=== PATIENT | female | born 1960 | race Caucasian/White ===

== ENCOUNTER → 2018-03-23 | Emergency (ER) | payer BC ==
[~2018-03-23] VITALS: Ht 160 cm; Wt 60.8 kg
[~2018-03-23] MED LIST: ASPIR 8181 MG; NORVASC5 MG; ZYRTEC10 M3
== END | disposition home or self-care (01) ==
LOC: ER 09:21
DX: K52.89 Other specified noninfective gastroenteritis and colitis (principal); R10.32 Left lower quadrant pain

== ENCOUNTER 2020-11-28 19:38 | Inpatient (IN) | payer BC ==
[~2020-11-28] VITALS: Ht 160 cm; Wt 61.7 kg
== END 2020-12-02 11:26 | disposition home or self-care (01) | DRG 690 ==
LOC: ER 19:38 → EDBD 20:24 → ER 20:24 → MEDJ 11-29 13:53
PROVIDERS: ADMIT Internal Medicine; ATTEND Internal Medicine
PROC: BW21ZZZ Computerized Tomography (CT Scan) of Abdomen and Pelvis (ICD-10-PCS; principal; 2020-11-29)
PROC: BW30YZZ Magnetic Resonance Imaging (MRI) of Abdomen using Other Contrast (ICD-10-PCS; 2020-11-30)
DX: N39.0 Urinary tract infection, site not specified (principal); K86.89 Other specified diseases of pancreas; I10 Essential (primary) hypertension; Z20.822 Contact with and (suspected) exposure to COVID-19
CPT/HCPCS: 74182

== ENCOUNTER 2023-08-31 11:19 | Emergency (ER) | payer BC ==
[~2023-08-31] VITALS: Ht 160 cm; Wt 61.2 kg
[2023-08-31 14:18] LABS: PH,URINE 5.5 (5.0-8.0); URINE APPEARANCE Clear; URINE BILIRRUBIN Negative (NEGATIVE); URINE BLOOD Negative; URINE COLOR Dark Yellow; URINE GLUCOSE Negative (NEGATIVE); URINE LEUKOCYTE Negative; URINE NITRATE Negative; URINE PROTEIN Negative (NEGATIVE)
[2023-08-31 14:19] LABS: HEMATOCRIT 37.3 % (36.0-45.00); HEMOGLOBIN 12.6 g/dL (12.0-15.00); MEAN CELL VOLUME 84.5 fL (80.00-100.00); MEAN CORPUSCULAR HEMOGLOBIN 28.5 pg (27.00-32.0); MEAN CORPUSCULAR HGB CONC 33.8 g/dl (32.0-36.0); PLATELET COUNT 263 K/uL (150-450); RED BLOOD COUNT 4.42 M/uL (4.00-6.00); RED CELL DISTRIBUTION WIDTH 13.7 % (11.5-14.5)
[2023-08-31 14:21] LABS: ERYTHROCYTE SEDIMENTATION RATE 17 mm/hr
[2023-08-31 14:22] LABS: URINE BACTERIA 7.5 uL (0.0-1933); URINE EPITHELIAL CELLS 6.1 uL (0.0-38.8); URINE RBC 6.1 uL (0.0-20.8); URINE WBC 5.2 uL (0.0-23.2)
[2023-08-31 14:39] LABS: CALCIUM 9.6 mg/dL (8.5-10.1); CREATININE SERUM 0.64 mg/dL (0.55-1.02); GFR 92.84; POTASSIUM 3.84 mEq/L (3.5-5.1)
== END 2023-08-31 15:29 | disposition home or self-care (01) ==
LOC: ER 11:19
PROVIDERS: General Practice
DX: R30.0 Dysuria (principal); Z88.0 Allergy status to penicillin; Z88.1 Allergy status to other antibiotic agents; Z88.8 Allergy status to other drugs, medicaments and biological substances; Z91.013 Allergy to seafood